=== PATIENT | female | born 1960 | race American Indian/Alaskan Native ===

== ENCOUNTER 2018-08-04 18:59 | Emergency (ER) | payer MEDICAID, SELFPAY ==
[2018-08-04 19:00] VITALS: BP 191/94; PULSE 72; RESP 16; TEMP 36.8; O2SAT 99; BMI 27.6
[2018-08-04 19:48] VITALS: RESP 16
--- NOTE | 2018-08-04 20:46 | ED.VISSUMM ---
- ER Visit Summary Date of Service: 08/04/18 Chief Complaint: Left arm pain History of Present Illness: The patient is a 57 F with left arm pain that started 2 days ago it has been constant it is worse when she moves it a certain way, she wants to make sure it is not as her heart. She has no medical problems has no medications that she takes she has no chest pain shortness of breath fever or chills she has no PE or DVT risk factors. She has no back pain or tearing sensation. She has no recent trauma. Physical Examination: Not appear in acute distress. Moist mucous membranes, no obvious facial deformity No C-spine tenderness supple neck. Regular rate and rhythm without any obvious murmurs Clear lungs bilaterally speaking in full sentences without any obvious respiratory distress Abdomen soft and nontender no guarding or rebound There is left arm tenderness to palpation, it is in the brachial groove, no chest wall pain. Skin does not show any obvious rashes or lesions, no trauma. Alert oriented ?3 with no gross focal deficit Emergency Department Course and Treatment: Troponin is negative EKG is normal. She had 2 days of left arm pain that are constant she has no medical problems or taking this medication she does not smoke, it is highly unlikely that she has a cardiac etiology. She appears well, she is told that if she has chest pain shortness of breath fever chills she needs to return to the emergency department for reevaluation Disposition: Discharge stable condition Impression: Left arm pain This note was generated with [employer] dictation software. It may contain incorrect words, spelling, and punctuation that were not noted in review of the chart prior to signing ED Disposition - Plan for ED Patient: Disposition: Home or Assisted Living Referrals: Josephine Murphy NP-C [Primary Care Provider] - Additional Instructions: You have left arm pain, there are no evidence of heart problems at this time. If you have chest pain shortness of breath fever or chills return to the emergency department right away.
[2018-08-04 21:01] VITALS: RESP 16; O2SAT 100
== END 2018-08-04 21:01 | disposition home or self-care (01) ==
PROVIDERS: Emergency Provider Emergency Medicine; Family Provider Nurse Practitioner Primary Care; PCP Nurse Practitioner Primary Care
DX: M79.602 Pain in left arm (principal)
CPT/HCPCS: 84484; 93005; 99282